=== PATIENT | male | born 1970 | race African-American/Black ===

== ENCOUNTER 2018-01-31 15:32 | Emergency (ER) | payer SELFPAY ==
[~2018-01-31] VITALS: Ht 165.1 cm; Wt 102.0 kg
[~2018-01-31 15:32] MED LIST: PRED10PA PO; TRAM50TA PO
[2018-01-31 15:35] VITALS: BP 183/84; PULSE 104; RESP 20; TEMP 98.5; O2SAT 99
--- NOTE | 2018-01-31 15:54 | PD ---
HPI Chief Complaint: Injury Time Seen by Provider: 15:48 Travel History International Travel<30 days: No Contact w/Intl Traveler<30days: No Traveled to known affect area: No History of Present Illness HPI 47-year-old -[place]i male with history of gout in the past, presents emergency department with pain, warmth, swelling, to the right knee without significant injury history. Patient states he had some gout flare several months ago. He normally treats it with [id number] medication and schrader juice. Patient admits that he may have had a few extra drinks over the holiday weekend as well as increased food intake. He states he woke up with this yesterday and has progressively worsened. He has no fever, chills, or other signs of infection. Pain is localized to the right knee. Pain currently is 8 out of 10, and worse with ambulation. He has no known drug allergies. PFSH Past Medical History Blood Disorders: No Cancer: No Cardiovascular Problems: No Chemotherapy: No Diminished Hearing: No Endocrine: No Gastrointestinal Disorders: No Gout: Yes Immune Disorder: No Musculoskeletal: Yes (RIGHT KNEE HURTS OCCASIONALLY) Neurologic: No Psychiatric: No Reproductive: No Respiratory: No Immunizations Current: No Radiation Therapy: No Tetanus Vaccination: Unknown Past Surgical History AICD: No Arteriovenous Shunt: No Insulin Pump: No Joint Replacement: No Pacemaker: No Other Surgery: No Social History Alcohol Use: Yes (RARE) Tobacco Use: Yes Substance Use: No Allergies-Medications (Allergen,Severity, Reaction): Coded Allergies: No Known Allergies (Verified Adverse Reaction, Unknown, 01/31/18) Reported Meds & Prescriptions Reported Meds & Active Scripts Active Tramadol (Tramadol HCl) 50 Mg Tab 50 Mg PO Q6H PRN Prednisone 20 Mg Tab 20 Mg PO BID 5 Days Review of Systems Except as stated in HPI: all other systems reviewed are Neg General / Constitutional: No: Fever, Chills Eyes: No: Visual changes HENT: No: Headaches Cardiovascular: No: Chest Pain or Discomfort Respiratory: No: Shortness of Breath Gastrointestinal: No: Abdominal Pain Genitourinary: No: Dysuria Musculoskeletal: Positive: Arthralgias, Limited ROM, Edema, No: Pain Skin: No Rash Neurologic: No: Weakness Psychiatric: No: Depression Endocrine: No: Polydipsia Hematologic/Lymphatic: No: Easy Bruising Physical Exam Narrative GENERAL: Patient appears in moderate distress per SKIN: Warm and dry. Normal color. Normal turgor. Patient has swelling, warmth to the right knee. There is no sign of open wound or abscess. HEAD: Atraumatic. Normocephalic. EYES: Pupils equal and round. No scleral icterus. No injection or drainage. ENT: No nasal bleeding or discharge. Mucous membranes pink and moist. Pharynx is clear. Airways patent NECK: Trachea midline. Supple nontender CARDIOVASCULAR: Regular rate and rhythm. RESPIRATORY: No accessory muscle use. Clear to auscultation. Breath sounds equal bilaterally. GASTROINTESTINAL: Abdomen soft, non-tender, nondistended. Hepatic and splenic margins not palpable. MUSCULOSKELETAL: Extremities without clubbing, cyanosis, or edema. No obvious deformities. Patient has pain with movement of the right knee, or palpation. There is a palpable effusion. It is warm to the touch. I suspect gout versus cellulitis. Exam is limited secondary to patient's discomfort NEUROLOGICAL: Awake and alert. No obvious cranial nerve deficits. Motor grossly within normal limits. Five out of 5 muscle strength in the arms and legs. Normal speech. PSYCHIATRIC: Appropriate mood and affect; insight and judgment normal. Data Data Last Documented VS Vital Signs Date Time Temp Pulse Resp B/P (MAP) Pulse Ox O2 Delivery O2 Flow Rate FiO2 01/31/18 15:35 98.5 104 20 183/84 (117) 99 Orders Orders Prednisone (Deltasone) (01/31/18 16:00) [facility] Medical Decision Making Medical Screen Exam Complete: Yes Emergency Medical Condition: Yes Differential Diagnosis Right knee effusion. Gouty arthritis flare. Right knee pain. Narrative Course Patient is given 60 mg prednisone p.o. now. Patient continued on prednisone 20 mg twice daily for 5 days. Patient is given tramadol 50 mg 1 every 6 hours as needed for pain #20. Work note is given. Patient is to rest, push fluids, and follow-up if symptoms worsen as needed. Diagnosis Primary Impression: Acute gouty arthritis Referrals: [facility] [place] Patient Instructions: General Instructions, Gout (ED), Low Purine Diet (ED) Departure Forms: Work Release Enter return to work date: February 02, 2018 Additional Instructions: Patient is given 60 mg prednisone p.o. now. Patient continued on prednisone 20 mg twice daily for 5 days. Patient is given tramadol 50 mg 1 every 6 hours as needed for pain #20. Work note is given. Patient is to rest, push fluids, and follow-up if symptoms worsen as needed. Med/Other Pt SpecificInfo: Prescription(s) given Scripts Tramadol (Tramadol) 50 Mg Tab 50 MG PO Q6H Y for PAIN, #20 TAB 0 Refills Prov: Wilmer Burden MD 01/31/18 Prednisone (Prednisone) 20 Mg Tab 20 MG PO BID for 5 Days, #10 TAB 0 Refills Prov: Wilmer Burden MD 01/31/18 Disposition: 01 DISCHARGE HOME Condition: Stable Carter Prieto January 31, 2018 15:54
[2018-01-31] MEDS ORDERED: PRED20 PO (15:55)
[2018-01-31] MEDS ORDERED: TRAM50TA PO (15:55)
[2018-01-31] MEDS ORDERED: predniSONE 20 MG TAB PO ONE (16:00)
== END 2018-01-31 16:22 | disposition home or self-care (01) ==
LOC: NEPK 15:32
DX: M10.9 Gout, unspecified (principal); Z72.0 Tobacco use
CPT/HCPCS: 99283; J7512